=== PATIENT | male | born 1960 | race Hispanic/Latino ===

== ENCOUNTER 2021-02-12 05:41 | Observation (INO) | payer BC ==
[2021-02-10 09:37] LABS: BASOPHILS % 0.1 % (0.0-1.0); EOSINOPHILS # (AUTO) 0.2 (0.0-0.4); EOSINOPHILS % 2.1 % (0.0-6.0); HEMATOCRIT 47.2 % (38.2-49.6); HEMOGLOBIN 15.9 g/dL (14.0-18.0); LYMPHOCYTES # (AUTO) 2.2 (1.0-3.2); MEAN CORPUSCULAR HEMOGLOBIN 29.2 pg (28-32); MEAN CORPUSCULAR HGB CONC 33.7 g/dL (31-35); MEAN CORPUSCULAR VOLUME 86.6 fL (81-99); MONOCYTES # (AUTO) 0.4 (0.2-0.8); MONOCYTES % 6.3 % (4.4-11.3); NEUTROPHILS # (AUTO) 4.1 (2.1-6.9); NEUTROPHILS % 59.2 % (38.7-80.0); PLATELET COUNT 225 x10e3/uL (140-360); RED BLOOD COUNT 5.45 x10e6/uL (4.3-5.7); RED CELL DISTRIBUTION WIDTH 12.5 % (11.7-14.4)
[2021-02-10 10:02] LABS: CALCIUM 8.9 mg/dL (8.4-10.2); CREATININE, SERUM 0.93 mg/dL (0.72-1.25)
[~2021-02-12] VITALS: Ht 172.7 cm; Wt 77.6 kg
[~2021-02-12 05:41] MED LIST: CRESTOR10 MG PO; GLYBURIDE-METF1 EAC1 PO; JARDIANCE25 MG PO; LOSARTAN POTASS25 MG PO; METFORMIN HCL500 MG PO
[2021-02-12] MEDS ORDERED: SODIUM CHLORIDE 0.9% 50ML 100 ML ONE (06:31)
[2021-02-12] MEDS ORDERED: BUPIVACAINE 0.25% 30ML SDV ONE (07:23)
[2021-02-12] MEDS ORDERED: FENTANYL CITRATE/PF 100MCG/2 ML INJ ONE ×2 (11:10→12:30)
[2021-02-12] MEDS ORDERED: MIDAZOLAM HCL 2 MG/2 ML VIAL ONE (12:30)
[2021-02-12 12:44] VITALS: BP 131/67
[2021-02-12 12:45] VITALS: BP_SYST 131; BP_SYST 144; BP_DIAS 67; BP_DIAS 69
[2021-02-12 13:04] VITALS: BP 131/67
[2021-02-12] MEDS: HYDROCODONE/APAP 7.5MG-325MG 1 EA TAB PO PRN (13:16)
[2021-02-12 16:43] VITALS: BP 135/58
[2021-02-12] MEDS ORDERED: GLYBURIDE 5 MG TAB PO SCH (17:00)
[2021-02-12] MEDS: METFORMIN HCL 500 MG TAB PO SCH (17:04)
[2021-02-12] MEDS: Cefazolin 1 GM in SODIUM CHLORIDE 0.9% 50ML 50 ML IV SCH (17:05)
[2021-02-12 20:10] VITALS: BP 107/58
[2021-02-12 20:22] VITALS: BP 107/58
[2021-02-12] MEDS ORDERED: SIMVASTATIN 40 MG TAB PO SCH (21:00)
[2021-02-13 00:33] VITALS: BP 125/62
[2021-02-13] MEDS: Cefazolin 1 GM in SODIUM CHLORIDE 0.9% 50ML 50 ML IV SCH ×3 (00:38→12:19)
[2021-02-13] MEDS: HYDROCODONE/APAP 7.5MG-325MG 1 EA TAB PO PRN ×2 (00:41→13:14)
[2021-02-13] MEDS: HYDROMORPHONE 1MG/1ML INJ IV PRN ×2 (01:41→08:40)
[2021-02-13 04:00] VITALS: BP 113/60
[2021-02-13 07:47] VITALS: BP 133/61
[2021-02-13 08:10] VITALS: BP 133/61
[2021-02-13] MEDS: METFORMIN HCL 500 MG TAB PO SCH (08:40)
[2021-02-13] MEDS ORDERED: LOSARTAN POTASSIUM 25 MG TAB PO SCH (09:00)
[2021-02-13] MEDS ORDERED: NON-FORMULARY MEDICATION (Empagliflozin (Jardiance) 25 MG) PO SCH (09:00)
[2021-02-13] MEDS ORDERED: GLYBURIDE 5 MG TAB PO SCH (11:00)
[2021-02-13 11:50] VITALS: BP 157/67
[2021-02-13] MEDS ORDERED: ONDANSETRON HCL INJ 2MG/ML 2ML 2 MG/ML VIAL ONE (13:11)
[2021-02-13] MEDS ORDERED: LIDOCAINE HCL 2% LOCAL INJ 5 ML SDV VIAL INJ ONE (13:11)
[2021-02-13] MEDS ORDERED: METOCLOPRAMIDE HCL 10 MG/2ML VIAL ONE (13:11)
[2021-02-13] MEDS ORDERED: PROPOFOL IV EMULSION 10 MG/ML 20 ML VIAL ONE (13:11)
[2021-02-13] MEDS ORDERED: EPHEDRINE SULFATE INJ 50 MG/ML VIAL ONE (13:11)
[2021-02-13] MEDS ORDERED: SEVOFLURANE INHAL SOLN 250 ML PEN BTL ONE (13:11)
[2021-02-13] MEDS ORDERED: POVIDONE IODINE 0.05% 0.05 % ML PO ONE (13:11)
== END 2021-02-13 14:21 | disposition home or self-care (01) ==
LOC: OR 05:41 → PACU V 10:54 → IMCU 12:59 → MED/SURG 21:30
PROVIDERS: ADMIT Surgery; ATTEND Surgery
DX: K40.91 Unilateral inguinal hernia, without obstruction or gangrene, recurrent (principal); Z01.810 Encounter for preprocedural cardiovascular examination; Z01.812 Encounter for preprocedural laboratory examination; Z20.822 Contact with and (suspected) exposure to COVID-19; E11.9 Type 2 diabetes mellitus without complications; Z68.25 Body mass index [BMI] 25.0-25.9, adult; Z86.16 Personal history of COVID-19; I10 Essential (primary) hypertension; E78.5 Hyperlipidemia, unspecified; Z79.84 Long term (current) use of oral hypoglycemic drugs
CPT/HCPCS: 36415 ×3; 49520; 80048; 82948 ×2; 85025; 88302; 93005; C1781; G0378 ×2; J0690 ×2; J1170 ×2; J2001; J2250; J2405; J2704; J2765; J3010; U0002

== ENCOUNTER 2021-04-28 07:55 | Observation (INO) | payer BC ==
[2021-04-14 09:20] LABS: BASOPHILS % 0.4 % (0.0-1.0); EOSINOPHILS # (AUTO) 0.2 (0.0-0.4); EOSINOPHILS % 2.2 % (0.0-6.0); HEMATOCRIT 50.3 % (38.2-49.6); HEMOGLOBIN 16.8 g/dL (14.0-18.0); LYMPHOCYTES # (AUTO) 2.4 (1.0-3.2); LYMPHOCYTES % 31.8 % (18.0-39.1); MEAN CORPUSCULAR HEMOGLOBIN 28.4 pg (28-32); MEAN CORPUSCULAR HGB CONC 33.4 g/dL (31-35); MEAN CORPUSCULAR VOLUME 85.1 fL (81-99); MONOCYTES # (AUTO) 0.5 (0.2-0.8); NEUTROPHILS # (AUTO) 4.5 (2.1-6.9); NEUTROPHILS % 59.3 % (38.7-80.0); PLATELET COUNT 236 x10e3/uL (140-360); RED BLOOD COUNT 5.91 x10e6/uL (4.3-5.7); RED CELL DISTRIBUTION WIDTH 12.1 % (11.7-14.4)
[2021-04-14 09:36] LABS: ANION GAP 13.4 mmol/L (8-16); POTASSIUM 4.4 mmol/L (3.5-5.1)
[2021-04-14 09:57] LABS: CALCIUM 9.6 mg/dL (8.4-10.2); CREATININE, SERUM 0.97 mg/dL (0.72-1.25)
[~2021-04-28] VITALS: Ht 172.7 cm; Wt 79.4 kg
[2021-04-28] MEDS ORDERED: LIDOCAINE 2%/ EPINEPHRINE 20ML MDV ONE (08:53)
[2021-04-28] MEDS ORDERED: BUPIVACAINE HCL 0.5% INJ 30 ML VIAL INJ ONE ×2 (08:54→10:18)
[2021-04-28] MEDS ORDERED: KETOROLAC TROMETHAMINE 30 MG/ML VIAL ONE (13:13)
[2021-04-28] MEDS ORDERED: PROPOFOL IV EMULSION 10 MG/ML 20 ML VIAL ONE (13:13)
[2021-04-28] MEDS ORDERED: POVIDONE IODINE 0.05% 0.05 % ML PO ONE (13:13)
[2021-04-28] MEDS ORDERED: LIDOCAINE HCL 2% LOCAL INJ 5 ML SDV VIAL INJ ONE (13:13)
[2021-04-28] MEDS ORDERED: ACETAMINOPHEN 1000 MG/100 ML IV ONE (13:13)
[2021-04-28] MEDS ORDERED: ONDANSETRON HCL INJ 2MG/ML 2ML 2 MG/ML VIAL ONE (13:13)
[2021-04-28] MEDS ORDERED: DEXAMETHASONE SOD PHOS INJ 4 MG/ML SDV ONE (13:13)
[2021-04-28] MEDS ORDERED: SEVOFLURANE INHAL SOLN 250 ML PEN BTL ONE (13:13)
[2021-04-28] MEDS ORDERED: FENTANYL CITRATE/PF 100MCG/2 ML INJ ONE (13:44)
[2021-04-28] MEDS ORDERED: MIDAZOLAM HCL 2 MG/2 ML VIAL ONE (13:44)
[2021-04-28] MEDS ORDERED: HYDROCODONE/APAP 7.5MG-325MG 1 EA TAB PO PRN (14:45)
[2021-04-28] MEDS ORDERED: HYDROMORPHONE 1MG/1ML INJ IV PRN (14:45)
[2021-04-28] MEDS: CEPHALEXIN 500 MG CAP PO SCH ×2 (16:00→21:29)
[2021-04-28 16:13] VITALS: BP 144/87
[2021-04-28] MEDS: METFORMIN HCL 500 MG TAB PO SCH (17:00)
[2021-04-28] MEDS: GLYBURIDE 5 MG TAB PO SCH (17:00)
[2021-04-28] MEDS: SODIUM CHLORIDE 0.9% 1000ML 1,000 ML IV SCH (17:10)
[2021-04-28 17:22] VITALS: BP 144/87
[2021-04-28 20:00] VITALS: BP 143/83
[2021-04-28] MEDS ORDERED: DEXTROSE 50% SYRINGE 50 ML IV PRN (20:45)
[2021-04-28] MEDS ORDERED: LOSARTAN POTASSIUM 25 MG TAB PO SCH (21:00)
[2021-04-28] MEDS ORDERED: SIMVASTATIN 20 MG TAB PO SCH (21:00)
[2021-04-28] MEDS: INSULIN LISPRO 100 UNIT/1 ML 3ML VIAL SQ SCH (21:34)
[2021-04-29] VITALS: BP 115/61
[2021-04-29] MEDS: SODIUM CHLORIDE 0.9% 1000ML 1,000 ML IV SCH (01:13)
[2021-04-29 04:00] VITALS: BP 116/61
[2021-04-29] MEDS: CEPHALEXIN 500 MG CAP PO SCH (05:19)
[2021-04-29] MEDS: INSULIN LISPRO 100 UNIT/1 ML 3ML VIAL SQ SCH (07:30)
[2021-04-29 08:18] VITALS: BP 136/67
[2021-04-29] MEDS: METFORMIN HCL 500 MG TAB PO SCH (08:40)
[2021-04-29] MEDS: GLYBURIDE 5 MG TAB PO SCH (08:40)
[2021-04-29 08:52] VITALS: BP 136/67
[2021-04-29] MEDS ORDERED: NON-FORMULARY MEDICATION (Empagliflozin (Jardiance) 25 MG) PO SCH (09:00)
== END 2021-04-29 09:50 | disposition home or self-care (01) ==
LOC: OR 07:55 → PACU V 14:50 → MED/SURG 15:55
PROVIDERS: ADMIT Surgery; ATTEND Surgery
DX: K44.9 Diaphragmatic hernia without obstruction or gangrene (principal); I10 Essential (primary) hypertension; E11.9 Type 2 diabetes mellitus without complications; Z79.899 Other long term (current) drug therapy; Z20.822 Contact with and (suspected) exposure to COVID-19
CPT/HCPCS: 36415 ×3; 43282; 80048; 82948 ×2; 85025; 88304; 94799 ×2; C1781; G0378 ×2; J0131; J0690; J1100; J1885; J2001 ×2; J2250; J2405; J2704; J3010; J7030 ×2; U0002; 88302